=== PATIENT | male | born 1940 | race Caucasian/White ===

== ENCOUNTER 2017-11-28 14:45 | Inpatient (IN) | payer MEDICARE ==
[~2017-11-28] VITALS: Ht 182.9 cm; Wt 98.5 kg
[~2017-11-28 14:45] MED LIST: B12 PO; BUDE10.2 INH; CARV3.122 PO; CHOL100046 PO; CLOP75TA16 PO; FURO40TA4 PO; LEVA15HF4 INH; MAGN400C PO; MULT-1085 PO; NITR0.4T51 SL; POTA-82 PO; ROSU10TA PO; calcium PO
[2017-11-28 15:24] LABS: BASOPHILS % (AUTO) 0.1 % (0-1); EOSINOPHILS # (AUTO) 0.3 X10'3 (0-0.9); EOSINOPHILS % (AUTO) 2.5 % (0-6); HEMATOCRIT 44.2 % (42.0-52.0); HEMOGLOBIN 14.5 g/dl (14.0-17.9); LYMPHOCYTES # (AUTO) 0.9 X10'3 (1.1-4.8); LYMPHOCYTES % (AUTO) 7.9 % (21-51); MEAN CORPUSCULAR HEMOGLOBIN 31.8 PG (27.0-31.0); MEAN CORPUSCULAR HGB CONC 32.9 % (33.0-36.5); MEAN CORPUSCULAR VOLUME 96.5 FL (78-98); MEAN PLATELET VOLUME 7.6 FL (7.4-10.4); MONOCYTES # (AUTO) 0.5 X10'3 (0-0.9); MONOCYTES % (AUTO) 4.6 % (2-12); NEUTROPHILS # (AUTO) 9.3 X10'3 (1.8-7.7); NEUTROPHILS % (AUTO) 84.9 % (42-75); PLATELET COUNT 153 X10'3 (140-440); RED BLOOD COUNT 4.57 X10'6 (4.70-6.10); RED CELL DISTRIBUTION WIDTH 14.4 % (11.5-14.5)
[2017-11-28] MEDS ORDERED: ondansetron/PF 4mg/2ml inj IV ONE (15:25)
[2017-11-28] MEDS ORDERED: morphine 4 MG/ML inj SYRINge IV PRN (15:25)
[2017-11-28 15:33] LABS: PARTIAL THROMBOPLASTIN TIME 26 SECONDS (22-32); PROTHROMBIN TIME 10.5 SECONDS (9.0-12.0)
[2017-11-28 15:38] LABS: ALANINE AMINOTRANSFERASE 21 U/L (12-78); ALBUMIN 4.2 G/DL (3.4-5.0); ALKALINE PHOSPHATASE 69 IU/L (46-116); ANION GAP 10 (8-16); ASPARTATE AMINO TRANSFERASE 25 U/L (10-37); BILIRUBIN,TOTAL 0.8 MG/DL (0.1-1.0); BLOOD UREA NITROGEN 30 MG/DL (7-18); BUN/CREATININE RATIO 16.6 (5.4-32.0); CALCIUM 10.1 MG/DL (8.5-10.1); CHLORIDE 101 MMOL/L (99-107); CREATININE 1.81 MG/DL (0.60-1.10); GLUCOSE 134 MG/DL (70-104); POTASSIUM 4.1 MMOL/L (3.5-5.1); SODIUM 143 MMOL/L (135-145); TOTAL PROTEIN 8.3 G/DL (6.4-8.2); eGFR 36 ML/MIN
[2017-11-28] MEDS ORDERED: mag hydrox/Alum hydrox/simeth 30ml oral suspension PO PRN (16:50)
[2017-11-28] MEDS ORDERED: potassium Cl 40MEQ/NS 500ml 500 ML IV PRN ×2 (16:50)
[2017-11-28] MEDS ORDERED: acetaminophen 325mg tablet PO PRN (16:50)
[2017-11-28] MEDS ORDERED: magnesium 4gm in 100ml NS 100 ML IV PRN (16:50)
[2017-11-28] MEDS ORDERED: magnesium hydroxide 30ml (MOM) UD suspension PO PRN (16:50)
[2017-11-28] MEDS ORDERED: potassium Cl 20 mEq SR tablet PO PRN ×2 (16:50)
[2017-11-28] MEDS ORDERED: HYDROmorphone 1 mg/ml syringe IV PRN (16:50)
[2017-11-28] MEDS ORDERED: ondansetron/PF 4mg/2ml inj IV PRN (16:50)
[2017-11-28] MEDS ORDERED: magnesium Cl slow-release 64mg tablet PO PRN (16:50)
[2017-11-28] MEDS ORDERED: magnesium 1gm/100ml D5W IVPB 100 ML IV PRN (16:50)
[2017-11-28] MEDS ORDERED: FISH12002 PO (16:53)
[2017-11-28] MEDS ORDERED: MAGN500C16 PO (16:53)
[2017-11-28] MEDS ORDERED: CHOL400C8 PO (16:53)
[2017-11-28] MEDS ORDERED: LIDOcaine 2% 10ml TOPICAL JELLY (Urojet) MM ONE (17:20)
[2017-11-28] MEDS ORDERED: nitroGLYCERIN 0.4mg SUBLingual tab SL PRN (17:20)
[2017-11-28] MEDS ORDERED: albuterol 2.5 MG/3 ML nebule NEB PRN (17:20)
[2017-11-28 17:52] LABS: CLARITY,URINE CLEAR (Clear); COLOR,URINE YELLOW (Yellow); GLUCOSE, URINE NEGATIVE (Neg); KETONES,URINE NEGATIVE (Neg); LEUKOCYTE ESTERASE ,URINE NEGATIVE (Neg); NITRITES, URINE NEGATIVE (Neg); OCCULT BLOOD,URINE NEGATIVE (Neg); PH,URINE 5.5 (4.8-8.0); PROTEIN,URINE NEGATIVE (Neg); UROBILINOGEN,URINE 0.2 E.U/dL (0.2-1.0)
[2017-11-28 17:54] LABS: UA COLLECTION TYPE NON-SPECIFIED
[2017-11-28 18:00] VITALS: BP 149/89
[2017-11-28] MEDS: albuterol 2.5 MG/3 ML nebule NEB SCH ×2 (19:00→23:00)
[2017-11-28] MEDS: normal saline 1000ml 1,000 ML IV SCH (19:15)
[2017-11-28] MEDS: pantoprazole 40 MG vial IV SCH (19:36)
[2017-11-28 20:00] VITALS: BP 131/82
[2017-11-28] MEDS ORDERED: non-formulary drug (Budesonide/Formoterol Fumarate (Symbicort 160-4.5 Mcg Inhaler) 2 PUFFS INH SCH (20:00)
[2017-11-28] MEDS: budesonide 0.5mg/2ml UD nebule IH SCH (20:13)
[2017-11-28] MEDS ORDERED: LEVA0.6319 NEB (21:11)
[2017-11-28] MEDS: carVEDilol 3.125mg tablet PO SCH (21:38)
[2017-11-28] MEDS: diatr meglu/diatrizoate 30ml oral sol.-(3 dose) bottle PO SCH (21:39)
[2017-11-29] VITALS: BP 118/66
[2017-11-29] MEDS: HYDROmorphone 1 mg/ml syringe IV PRN ×2 (01:56→08:14)
[2017-11-29] MEDS: albuterol 2.5 MG/3 ML nebule NEB SCH ×6 (03:00→23:00)
[2017-11-29] MEDS: normal saline 1000ml 1,000 ML IV SCH ×3 (03:10→22:50)
[2017-11-29 05:06] LABS: BASOPHILS % (AUTO) 0 % (0-1); EOSINOPHILS # (AUTO) 0.2 X10'3 (0-0.9); EOSINOPHILS % (AUTO) 3.4 % (0-6); HEMATOCRIT 37.4 % (42.0-52.0); HEMOGLOBIN 12.4 g/dl (14.0-17.9); LYMPHOCYTES % (AUTO) 15.9 % (21-51); MEAN CORPUSCULAR HEMOGLOBIN 31.8 PG (27.0-31.0); MEAN CORPUSCULAR HGB CONC 33.1 % (33.0-36.5); MEAN CORPUSCULAR VOLUME 96.2 FL (78-98); MEAN PLATELET VOLUME 8.1 FL (7.4-10.4); MONOCYTES # (AUTO) 0.7 X10'3 (0-0.9); MONOCYTES % (AUTO) 10.6 % (2-12); NEUTROPHILS # (AUTO) 4.3 X10'3 (1.8-7.7); NEUTROPHILS % (AUTO) 70.1 % (42-75); PLATELET COUNT 122 X10'3 (140-440); RED BLOOD COUNT 3.89 X10'6 (4.70-6.10); RED CELL DISTRIBUTION WIDTH 14.1 % (11.5-14.5); WHITE BLOOD COUNT 6.2 X10'3 (4.5-11.0)
[2017-11-29 05:28] LABS: ALANINE AMINOTRANSFERASE 21 U/L (12-78); ALBUMIN 3.3 G/DL (3.4-5.0); ALKALINE PHOSPHATASE 52 IU/L (46-116); ANION GAP 11 (8-16); ASPARTATE AMINO TRANSFERASE 23 U/L (10-37); BILIRUBIN,TOTAL 0.8 MG/DL (0.1-1.0); BLOOD UREA NITROGEN 27 MG/DL (7-18); CALCIUM 8.9 MG/DL (8.5-10.1); CHLORIDE 104 MMOL/L (99-107); CREATININE 1.59 MG/DL (0.60-1.10); GLUCOSE 97 MG/DL (70-104); MAGNESIUM 2.4 MG/DL (1.5-2.4); POTASSIUM 3.8 MMOL/L (3.5-5.1); SODIUM 144 MMOL/L (135-145); TOTAL PROTEIN 6.6 G/DL (6.4-8.2); eGFR 42 ML/MIN
[2017-11-29 07:00] VITALS: BP 128/64
[2017-11-29] MEDS: budesonide 0.5mg/2ml UD nebule IH SCH ×2 (07:30→19:33)
[2017-11-29] MEDS: K and/or MAG REPLACEMENT MC SCH (08:00)
[2017-11-29] MEDS: carVEDilol 3.125mg tablet PO SCH ×2 (08:07→19:25)
[2017-11-29] MEDS: diatr meglu/diatrizoate 30ml oral sol.-(3 dose) bottle PO SCH ×2 (08:07→10:49)
[2017-11-29] MEDS: pantoprazole 40 MG vial IV SCH (08:07)
[2017-11-29 11:00] VITALS: BP 120/68
[2017-11-29 20:00] VITALS: BP 93/60
[2017-11-30 00:10] VITALS: BP 106/53
[2017-11-30] MEDS: albuterol 2.5 MG/3 ML nebule NEB SCH ×6 (02:53→23:11)
[2017-11-30 06:36] LABS: BASOPHILS % (AUTO) 0.1 % (0-1); EOSINOPHILS # (AUTO) 0.2 X10'3 (0-0.9); EOSINOPHILS % (AUTO) 3.5 % (0-6); HEMATOCRIT 34.3 % (42.0-52.0); HEMOGLOBIN 11.4 g/dl (14.0-17.9); LYMPHOCYTES # (AUTO) 0.8 X10'3 (1.1-4.8); LYMPHOCYTES % (AUTO) 14.1 % (21-51); MEAN CORPUSCULAR HEMOGLOBIN 31.9 PG (27.0-31.0); MEAN CORPUSCULAR HGB CONC 33.1 % (33.0-36.5); MEAN CORPUSCULAR VOLUME 96.4 FL (78-98); MEAN PLATELET VOLUME 8.4 FL (7.4-10.4); MONOCYTES # (AUTO) 0.6 X10'3 (0-0.9); MONOCYTES % (AUTO) 11.1 % (2-12); NEUTROPHILS % (AUTO) 71.2 % (42-75); PLATELET COUNT 102 X10'3 (140-440); RED BLOOD COUNT 3.55 X10'6 (4.70-6.10); RED CELL DISTRIBUTION WIDTH 14.1 % (11.5-14.5); WHITE BLOOD COUNT 5.6 X10'3 (4.5-11.0)
[2017-11-30 06:40] LABS: ALANINE AMINOTRANSFERASE 15 U/L (12-78); ALBUMIN 2.8 G/DL (3.4-5.0); ALBUMIN/GLOBULIN RATIO 0.9 (1.1-1.5); ALKALINE PHOSPHATASE 42 IU/L (46-116); ANION GAP 9 (8-16); ASPARTATE AMINO TRANSFERASE 18 U/L (10-37); BILIRUBIN,TOTAL 0.7 MG/DL (0.1-1.0); BLOOD UREA NITROGEN 23 MG/DL (7-18); BUN/CREATININE RATIO 16.1 (5.4-32.0); CALCIUM 8.3 MG/DL (8.5-10.1); CHLORIDE 109 MMOL/L (99-107); CREATININE 1.43 MG/DL (0.60-1.10); GLUCOSE 74 MG/DL (70-104); MAGNESIUM 2.2 MG/DL (1.5-2.4); POTASSIUM 3.9 MMOL/L (3.5-5.1); SODIUM 146 MMOL/L (135-145); TOTAL CARBON DIOXIDE 28.1 MMOL/L (24-32); TOTAL PROTEIN 5.8 G/DL (6.4-8.2); eGFR 48 ML/MIN
[2017-11-30 06:58] VITALS: BP 115/60
[2017-11-30] MEDS: budesonide 0.5mg/2ml UD nebule IH SCH ×2 (07:30→19:13)
[2017-11-30] MEDS: K and/or MAG REPLACEMENT MC SCH (08:00)
[2017-11-30] MEDS: pantoprazole 40 MG vial IV SCH (08:46)
[2017-11-30] MEDS: carVEDilol 3.125mg tablet PO SCH ×2 (08:46→20:03)
[2017-11-30] MEDS: normal saline 1000ml 1,000 ML IV SCH (08:47)
[2017-11-30 11:37] VITALS: BP 128/60
[2017-11-30] MEDS: sodium chloride 0.45% 1,000 ML IV SCH ×2 (13:07→22:35)
[2017-11-30 20:00] VITALS: BP 135/73
[2017-12-01] VITALS: BP 129/67
[2017-12-01] MEDS: albuterol 2.5 MG/3 ML nebule NEB SCH ×3 (03:00→10:52)
[2017-12-01 06:50] LABS: BASOPHILS % (AUTO) 0.2 % (0-1); EOSINOPHILS # (AUTO) 0.3 X10'3 (0-0.9); HEMATOCRIT 33.8 % (42.0-52.0); HEMOGLOBIN 11.1 g/dl (14.0-17.9); LYMPHOCYTES # (AUTO) 0.8 X10'3 (1.1-4.8); LYMPHOCYTES % (AUTO) 14.9 % (21-51); MEAN CORPUSCULAR HEMOGLOBIN 31.6 PG (27.0-31.0); MEAN CORPUSCULAR HGB CONC 32.8 % (33.0-36.5); MEAN CORPUSCULAR VOLUME 96.4 FL (78-98); MEAN PLATELET VOLUME 8.3 FL (7.4-10.4); MONOCYTES # (AUTO) 0.7 X10'3 (0-0.9); MONOCYTES % (AUTO) 11.8 % (2-12); NEUTROPHILS # (AUTO) 3.9 X10'3 (1.8-7.7); NEUTROPHILS % (AUTO) 68.1 % (42-75); PLATELET COUNT 108 X10'3 (140-440); RED CELL DISTRIBUTION WIDTH 13.8 % (11.5-14.5); WHITE BLOOD COUNT 5.7 X10'3 (4.5-11.0)
[2017-12-01 07:06] LABS: ALBUMIN 2.8 G/DL (3.4-5.0); ANION GAP 10 (8-16); BILIRUBIN,TOTAL 0.8 MG/DL (0.1-1.0); BLOOD UREA NITROGEN 18 MG/DL (7-18); CALCIUM 8.2 MG/DL (8.5-10.1); CHLORIDE 107 MMOL/L (99-107); CREATININE 1.38 MG/DL (0.60-1.10); GLUCOSE 99 MG/DL (70-104); MAGNESIUM 2.2 MG/DL (1.5-2.4); POTASSIUM 3.6 MMOL/L (3.5-5.1); SODIUM 144 MMOL/L (135-145); TOTAL PROTEIN 5.8 G/DL (6.4-8.2); eGFR 50 ML/MIN
[2017-12-01 07:07] LABS: ALANINE AMINOTRANSFERASE 15 U/L (12-78); ALBUMIN/GLOBULIN RATIO 0.9 (1.1-1.5); ALKALINE PHOSPHATASE 41 IU/L (46-116); ASPARTATE AMINO TRANSFERASE 16 U/L (10-37)
[2017-12-01] MEDS: budesonide 0.5mg/2ml UD nebule IH SCH (07:18)
[2017-12-01] MEDS: pantoprazole 40 MG vial IV SCH (07:44)
[2017-12-01] MEDS: carVEDilol 3.125mg tablet PO SCH (07:44)
[2017-12-01 08:00] VITALS: BP 118/73
[2017-12-01] MEDS: K and/or MAG REPLACEMENT MC SCH (08:00)
[2017-12-01] MEDS: sodium chloride 0.45% 1,000 ML IV SCH (08:35)
[2017-12-01 11:45] VITALS: BP 130/69
== END 2017-12-01 15:10 | disposition home or self-care (01) | DRG 388 ==
LOC: ER 14:46 → ED HOLD 16:47 → SUR 3N 18:13
PROVIDERS: ADMIT Family Medicine; ATTEND Family Medicine
PROC: 0D9670Z Drainage of Stomach with Drainage Device, Via Natural or Artificial Opening (ICD-10-PCS; principal; 2017-11-28)
DX: K56.609 Unspecified intestinal obstruction, unspecified as to partial versus complete obstruction (principal); N17.0 Acute kidney failure with tubular necrosis; I13.0 Hypertensive heart and chronic kidney disease with heart failure and stage 1 through stage 4 chronic kidney disease, or unspecified chronic kidney disease; E78.5 Hyperlipidemia, unspecified; I48.91 Unspecified atrial fibrillation; J44.9 Chronic obstructive pulmonary disease, unspecified; D64.9 Anemia, unspecified; G47.33 Obstructive sleep apnea (adult) (pediatric); G47.419 Narcolepsy without cataplexy; I25.10 Atherosclerotic heart disease of native coronary artery without angina pectoris; I50.9 Heart failure, unspecified; N18.9 Chronic kidney disease, unspecified; N40.0 Benign prostatic hyperplasia without lower urinary tract symptoms; I25.2 Old myocardial infarction; Z95.2 Presence of prosthetic heart valve; Z23 Encounter for immunization; Z95.1 Presence of aortocoronary bypass graft; Z95.5 Presence of coronary angioplasty implant and graft; Z88.2 Allergy status to sulfonamides; Z88.8 Allergy status to other drugs, medicaments and biological substances; Z91.048 Other nonmedicinal substance allergy status; Z79.899 Other long term (current) drug therapy; Z86.010 Personal history of colon polyps; Z87.11 Personal history of peptic ulcer disease; Z82.49 Family history of ischemic heart disease and other diseases of the circulatory system; Z80.9 Family history of malignant neoplasm, unspecified
CPT/HCPCS: 36415; 71045; 74018; 74176; 80053; 81003; 83735; 84484; 85025; 85610; 85730; 87070; 93005; 93308; 94640; 94760; 96374; 96375; 99285; C9113; J1170; J2270; J2405; J7030; J7626; Q9963

== ENCOUNTER 2020-08-30 10:29 | Day surgery (SDC) | payer MEDICARE, BC ==
[~2020-08-30] VITALS: Ht 180.3 cm; Wt 85.0 kg
[~2020-08-30 10:29] MED LIST changes: +ATRNS IH; -B12 PO; +CAL MAG ZINC PO; -CHOL100046 PO; +CHOL400C8 PO; +CLOP-32 PO; -CLOP75TA16 PO; +CYAN-51 PO; +FERR325T32 PO; +FISH12002 PO; +FURO20TA4 PO; -FURO40TA4 PO; -MAGN400C PO; +MAGN500C16 PO; -ROSU10TA PO; +ROSU10TA2 PO; +VITA-268 PO; -calcium PO
[2020-08-30] MEDS ORDERED: normal saline 1000ml 1,000 ML IV PRN (11:10)
[2020-08-30] MEDS ORDERED: FURO-150 PO (11:32)
[2020-08-30] MEDS ORDERED: LACT1CAP73 PO (11:32)
[2020-08-30] MEDS ORDERED: ZINC50TA67 PO (11:32)
[2020-08-30] MEDS ORDERED: MUPI15CR12 TOP (11:32)
[2020-08-30] MEDS ORDERED: UBID100C16 PO (11:32)
[2020-08-30 12:30] VITALS: BP 116/61
[2020-08-30] MEDS ORDERED: midazolam 1 mg/ML 2ml injection ONE (12:54)
[2020-08-30] MEDS ORDERED: heparin 1,000unit/ml 10ml vial 10 ML ONE (12:54)
[2020-08-30] MEDS ORDERED: fentaNYL/PF 50MCG/1 ML 2ML syringe ONE (12:54)
[2020-08-30] MEDS ORDERED: LIDOcaine 1%/PF 5ML 10 MG/ML VIAL ONE (12:54)
[2020-08-30 13:55] VITALS: BP 132/45
[2020-08-30 14:10] VITALS: BP 139/68
[2020-08-30 14:25] VITALS: BP 127/59
[2020-08-30 14:40] VITALS: BP 125/62
[2020-08-30 15:10] VITALS: BP 125/61
[2020-09-03] MEDS ORDERED: FLUT1BLS4 INH (14:38)
[2020-09-04] MEDS ORDERED: MUPI22OI30 TOP (10:25)
[2020-09-04] MEDS ORDERED: CALC-103 PO (10:25)
[2020-09-04] MEDS ORDERED: FURO40TA4 PO (11:00)
== END 2020-08-30 15:40 | disposition home or self-care (01) ==
LOC: SSTAY O 10:29
PROVIDERS: ATTEND Radiology Vascular & Interventional Radiology
DX: N18.6 End stage renal disease (principal); Z79.899 Other long term (current) drug therapy; Z79.01 Long term (current) use of anticoagulants; Z88.2 Allergy status to sulfonamides; Z91.09 Other allergy status, other than to drugs and biological substances; Z88.8 Allergy status to other drugs, medicaments and biological substances; Z82.49 Family history of ischemic heart disease and other diseases of the circulatory system; Z80.0 Family history of malignant neoplasm of digestive organs
CPT/HCPCS: 36558; 76937; 77001; 99152; C1750; C1769; C1894; J1644; J2250; J3010; 99153

== ENCOUNTER 2020-10-17 10:30 | Outpatient (CLI) | payer MEDICARE, BC ==
[~2020-10-17 10:30] MED LIST changes: -ATRNS IH; -BUDE10.2 INH; -CAL MAG ZINC PO; +CALC-103 PO; +FLUT1BLS4 INH; -FURO20TA4 PO; +FURO40TA4 PO; +LACT1CAP73 PO; +MUPI22OI30 TOP; +UBID100C16 PO; +ZINC50TA67 PO
[2020-10-17] MEDS ORDERED: MULT-381 PO (11:53)
[2020-10-17] MEDS ORDERED: PANT40TA54 PO (12:04)
[2020-10-17] MEDS ORDERED: IPRATROPIUM NASAL (12:05)
[2020-10-17] MEDS ORDERED: DIPH25TA62 PO (12:05)
[2020-10-17] MEDS ORDERED: FISH12002 PO (12:05)
[2020-10-17 12:14] LABS: BASOPHILS % (AUTO) 0.8 % (0-1); EOSINOPHILS # (AUTO) 0.3 X10'3 (0-0.9); EOSINOPHILS % (AUTO) 5.4 % (0-6); LYMPHOCYTES # (AUTO) 0.8 X10'3 (1.1-4.8); LYMPHOCYTES % (AUTO) 13.1 % (21-51); MEAN CORPUSCULAR HEMOGLOBIN 34.1 PG (27.0-31.0); MEAN CORPUSCULAR HGB CONC 31.4 g/dL (33.0-36.5); MEAN CORPUSCULAR VOLUME 108.7 FL (78-98); MEAN PLATELET VOLUME 8.7 FL (7.4-10.4); MONOCYTES # (AUTO) 0.6 X10'3 (0-0.9); MONOCYTES % (AUTO) 10.8 % (2-12); NEUTROPHILS # (AUTO) 4.1 X10'3 (1.8-7.7); NEUTROPHILS % (AUTO) 69.9 % (42-75); PRE OP HEMATOCRIT 34.2 % (42.0-52.0); PRE OP PLATELET COUNT 123 X10'3 (140-440); RED BLOOD COUNT 3.15 X10'6 (4.70-6.10); RED CELL DISTRIBUTION WIDTH 21.1 % (11.5-14.5)
[2020-10-17 12:15] LABS: CLARITY,URINE CLEAR (Clear); COLOR,URINE YELLOW (Yellow); GLUCOSE, URINE NEGATIVE (Neg); KETONES,URINE NEGATIVE (Neg); LEUKOCYTE ESTERASE ,URINE NEGATIVE (Neg); NITRITES, URINE NEGATIVE (Neg); OCCULT BLOOD,URINE TRACE-INTACT (Neg); PROTEIN,URINE 30 mg/dl (Neg); UROBILINOGEN,URINE 0.2 E.U/dL (0.2-1.0)
[2020-10-17 12:17] LABS: PRE OP HEMOGLOBIN 10.7 g/dL (14.0-17.9)
[2020-10-17 12:22] LABS: UA COLLECTION TYPE CLN CATCH MIDSTREAM
[2020-10-17 12:23] LABS: BACTERIA,URINE NONE SEEN /HPF (Neg); RBC,URINE NONE SEEN /HPF (0-2); SQUAMOUS EPITHELIAL CELL,UR NONE SEEN /LPF (FEW); WBC,URINE NONE SEEN /HPF (0-4)
[2020-10-17 12:24] LABS: PRE OP INR 1.2 INR; PRE OP PROTIME 11.9 SECONDS (9.0-12.0)
[2020-10-17 12:28] LABS: ALBUMIN 3.3 G/DL (3.4-5.0); ALKALINE PHOSPHATASE 73 IU/L (46-116); BLOOD UREA NITROGEN 45 MG/DL (7-18); BUN/CREATININE RATIO 8.7 (5.4-32.0); CALCIUM 8.1 MG/DL (8.5-10.1); CHLORIDE 108 MMOL/L (99-107); PRE OP ALT 19 U/L (30-65); PRE OP ANION GAP 13 (8-16); PRE OP AST 22 U/L (10-37); PRE OP BILIRUB, TOTAL 0.8 MG/DL (0.0-1.0); PRE OP GLUCOSE 95 MG/DL (70-104); PRE OP POTASSIUM 4.9 MMOL/L (3.4-5.1); PRE OP SODIUM 145 MMOL/L (135-145); TOTAL CARBON DIOXIDE 24.5 MMOL/L (24-32); TOTAL PROTEIN 6.7 G/DL (6.4-8.2); eGFR 11 ML/MIN
[2020-10-17 13:05] LABS: ANISOCYTOSIS 3+; BURR CELLS FEW; PLATELET ESTIMATE DECREASED
[2020-10-17 13:06] LABS: MICROCYTOSIS 1+; SCHISTOCYTES FEW
[2020-11-21] MEDS ORDERED: VITA1TAB37 PEG (12:04)
[2020-11-21] MEDS ORDERED: LACT1CAP65 PO (12:04)
[2020-11-21] MEDS ORDERED: CALC200T PO (12:04)
[2020-11-21] MEDS ORDERED: MUPI22OI30 TOP (12:04)
[2020-11-21] MEDS ORDERED: MULT-1085 PO (12:04)
[2020-11-21] MEDS ORDERED: FURO40TA4 PO (12:04)
[2020-11-21] MEDS ORDERED: PROM473S4 PO (12:04)
[2020-11-21] MEDS ORDERED: LOPE-144 (12:04)
[2020-11-21] MEDS ORDERED: FERR236T3 PO (12:04)
== END 2020-10-17 23:59 | disposition home or self-care (01) ==
LOC: PRE-OP 10:30 → EDSTATUS 10-24 09:15
PROVIDERS: ATTEND Surgery
DX: Z01.812 Encounter for preprocedural laboratory examination (principal); I11.0 Hypertensive heart disease with heart failure; I50.9 Heart failure, unspecified; Z20.822 Contact with and (suspected) exposure to COVID-19
CPT/HCPCS: 36415; 80053; 81001; 85008; 85025; 85610; 85730; 93005; U0003; U0005

== ENCOUNTER 2020-10-18 08:01 | Outpatient (CLI) | payer MEDICARE, BC ==
[2020-10-18] VITALS (12 sets, daily range): BP systolic 99–145; BP diastolic 38–61
[~2020-10-18] VITALS: Ht 182.9 cm; Wt 81.8 kg
[~2020-10-18 08:01] MED LIST changes: -CALC-103 PO; -CHOL400C8 PO; -CYAN-51 PO; +DIPH25TA62 PO; -FERR325T32 PO; +IPRATROPIUM NASAL; +MULT-381 PO; -NITR0.4T51 SL; +PANT40TA54 PO; -UBID100C16 PO; -ZINC50TA67 PO
[2020-10-18] MEDS ORDERED: regadenoson 0.4mg/5ml syringe IV ONE (09:20)
[2020-10-18] MEDS ORDERED: normal saline 500ml IV soln 500 ML IV ONE (09:20)
[2020-10-18] MEDS ORDERED: aminophylline 250mg/10ml inj. IV PRN (09:20)
[2020-10-18] MEDS ORDERED: nitroGLYCERIN 0.4mg SUBLingual tab SL PRN (09:20)
== END 2020-10-18 23:59 | disposition home or self-care (01) ==
LOC: RAD 08:01
PROVIDERS: ATTEND Internal Medicine Cardiovascular Disease
DX: I25.10 Atherosclerotic heart disease of native coronary artery without angina pectoris (principal)
CPT/HCPCS: 78452; 93017; A9500; J0280; J2785; J7040

== ENCOUNTER 2020-10-29 20:06 | Inpatient (IN) | payer MEDICARE, BC ==
[~2020-10-29] VITALS: Ht 182.9 cm; Wt 86.4 kg
[2020-10-29 21:18] LABS: PARTIAL THROMBOPLASTIN TIME 37 SECONDS (22-32)
[2020-10-29 21:28] LABS: ALANINE AMINOTRANSFERASE 14 U/L (12-78); ALBUMIN 3.6 G/DL (3.4-5.0); ALBUMIN/GLOBULIN RATIO 1.1 (1.1-1.5); ALKALINE PHOSPHATASE 86 IU/L (46-116); ANION GAP 23 (8-16); ASPARTATE AMINO TRANSFERASE 17 U/L (10-37); BILIRUBIN,TOTAL 0.7 MG/DL (0.1-1.0); BLOOD UREA NITROGEN 135 MG/DL (7-18); BUN/CREATININE RATIO 13.9 (5.4-32.0); CALCIUM 7.9 MG/DL (8.5-10.1); CHLORIDE 113 MMOL/L (99-107); CREATININE 9.74 MG/DL (0.60-1.10); GLUCOSE 83 MG/DL (70-104); MAGNESIUM 2.1 MG/DL (1.5-2.4); PHOSPHORUS 7.5 MG/DL (2.3-4.5); SODIUM 146 MMOL/L (135-145); TOTAL PROTEIN 6.8 G/DL (6.4-8.2); TROPONIN I 0.04 NG/ML (0.0-0.05); eGFR 5 ML/MIN
[2020-10-29 21:35] LABS: POTASSIUM 6.3 MMOL/L (3.5-5.1); TOTAL CARBON DIOXIDE 10.5 MMOL/L (24-32)
[2020-10-29] MEDS ORDERED: ondansetron/PF 4mg/2ml inj IV PRN (21:35)
[2020-10-29] MEDS ORDERED: magnesium hydroxide 30ml (MOM) UD suspension PO PRN (21:35)
[2020-10-29] MEDS ORDERED: HYDROcodone/acetaminophen 5mg/325mg tablet PO PRN (21:35)
[2020-10-29] MEDS ORDERED: mag hydrox/Alum hydrox/simeth 30ml oral suspension PO PRN (21:35)
[2020-10-29] MEDS ORDERED: morphine 2 MG/ML inj. syringe IV PRN ×2 (21:35)
[2020-10-29] MEDS ORDERED: acetaminophen 325mg tablet PO PRN ×2 (21:35)
[2020-10-29] MEDS ORDERED: normal saline 1000ml 250 ML IV PRN (21:50)
[2020-10-29] MEDS ORDERED: heparin 1,000unit/ml 10ml vial 10 ML IV ONE (21:50)
[2020-10-29] MEDS ORDERED: calcium chloride 100 MG/1 ML inj IV ONE (21:55)
[2020-10-29] MEDS ORDERED: heparin 1,000 units/ml 10ml inj HE ONE ×2 (21:55)
[2020-10-29 22:02] LABS: BASOPHILS # (AUTO) 0.1 X10'3 (0-0.2); BASOPHILS % (AUTO) 1.5 % (0-1); EOSINOPHILS # (AUTO) 0.2 X10'3 (0-0.9); EOSINOPHILS % (AUTO) 3.3 % (0-6); LYMPHOCYTES # (AUTO) 0.8 X10'3 (1.1-4.8); LYMPHOCYTES % (AUTO) 13.2 % (21-51); MONOCYTES # (AUTO) 0.7 X10'3 (0-0.9); MONOCYTES % (AUTO) 11.2 % (2-12); NEUTROPHILS # (AUTO) 4.2 X10'3 (1.8-7.7); NEUTROPHILS % (AUTO) 70.8 % (42-75)
--- NOTE | 2020-10-29 22:14 | NUR ---
[place] in EDM - 10/29/20 at 2218 by [facility] HOSPITALIST CALLED. VERBAL RECEIVED FROM DR. GROVE FOR PRN ATIVAN 0.5 MG Q2 HR PRN FOR AGGITATION.
[2020-10-29] MEDS ORDERED: LORazepam 2 mg/ml vial IV PRN (22:15)
[2020-10-29 22:49] LABS: HEMATOCRIT 38.6 % (42.0-52.0); HEMOGLOBIN 11.9 g/dl (14.0-17.9); MEAN CORPUSCULAR HEMOGLOBIN 33.4 PG (27.0-31.0); MEAN CORPUSCULAR VOLUME 107.9 FL (78-98); PLATELET COUNT 67 X10'3 (140-440); RED BLOOD COUNT 3.57 X10'6 (4.70-6.10); RED CELL DISTRIBUTION WIDTH 17.9 % (11.5-14.5); WHITE BLOOD COUNT 6.1 X10'3 (4.5-11.0)
[2020-10-29 23:08] LABS: PLATELET ESTIMATE DECREASED
[2020-10-29 23:09] LABS: ANISOCYTOSIS 2+
--- NOTE | 2020-10-29 23:38 | NUR ---
TEST RIDER AT BEDSIDE AND PT TAKEN TO ANOTHER AREA FOR DIALYSIS PROCEDURE. ADMISSION ORDERS COMPLETED AND PT AWAITING IPA.
--- NOTE | 2020-10-30 00:59 | NUR ---
PT STILL UNDERGOING DIALYSIS TREATMENT WITH THE DIALYSIS NURSE
[2020-10-30] MEDS ORDERED: ATRNS ×2 (02:23→09:51)
--- NOTE | 2020-10-30 02:58 | NUR ---
pt returned from dialysis. airborne and air delivery specialist reports. 1 liter dialized off per Dr. Root orders. Pt tolerated procidure well. Placed on hospital bed awaiting IPA
[2020-10-30 03:06] LABS: BASOPHILS % (AUTO) 0.9 % (0-1); EOSINOPHILS # (AUTO) 0.2 X10'3 (0-0.9); EOSINOPHILS % (AUTO) 3.4 % (0-6); HEMATOCRIT 33.2 % (42.0-52.0); HEMOGLOBIN 10.4 g/dl (14.0-17.9); LYMPHOCYTES # (AUTO) 0.7 X10'3 (1.1-4.8); LYMPHOCYTES % (AUTO) 12.2 % (21-51); MEAN CORPUSCULAR HEMOGLOBIN 33.7 PG (27.0-31.0); MEAN CORPUSCULAR HGB CONC 31.3 g/dL (33.0-36.5); MEAN CORPUSCULAR VOLUME 107.5 FL (78-98); MEAN PLATELET VOLUME 8.9 FL (7.4-10.4); MONOCYTES # (AUTO) 0.6 X10'3 (0-0.9); MONOCYTES % (AUTO) 11.5 % (2-12); NEUTROPHILS # (AUTO) 3.9 X10'3 (1.8-7.7); RED BLOOD COUNT 3.09 X10'6 (4.70-6.10); RED CELL DISTRIBUTION WIDTH 18.5 % (11.5-14.5); WHITE BLOOD COUNT 5.4 X10'3 (4.5-11.0)
[2020-10-30 03:27] LABS: ALBUMIN 3.3 G/DL (3.4-5.0); ANION GAP 18 (8-16); BLOOD UREA NITROGEN 62 MG/DL (7-18); BUN/CREATININE RATIO 12.9 (5.4-32.0); CALCIUM 7.4 MG/DL (8.5-10.1); CHLORIDE 107 MMOL/L (99-107); CREATININE 4.79 MG/DL (0.60-1.10); GLUCOSE 71 MG/DL (70-104); POTASSIUM 3.2 MMOL/L (3.5-5.1); SODIUM 144 MMOL/L (135-145); TOTAL CARBON DIOXIDE 18.7 MMOL/L (24-32); eGFR 12 ML/MIN
[2020-10-30] MEDS ORDERED: SODI650T29 PO ×2 (03:33→09:51)
[2020-10-30 04:05] LABS: PLATELET COUNT 71 X10'3 (140-440)
[2020-10-30 06:08] LABS: CLARITY,URINE CLEAR (Clear); COLOR,URINE YELLOW (Yellow); GLUCOSE, URINE NEGATIVE (Neg); KETONES,URINE TRACE mg/dl (Neg); LEUKOCYTE ESTERASE ,URINE NEGATIVE (Neg); NITRITES, URINE NEGATIVE (Neg); OCCULT BLOOD,URINE SMALL (Neg); PH,URINE 5.5 (4.8-8.0); PROTEIN,URINE TRACE mg/dl (Neg); UROBILINOGEN,URINE 0.2 E.U/dL (0.2-1.0)
[2020-10-30 06:23] LABS: UA COLLECTION TYPE CLN CATCH MIDSTREAM
[2020-10-30 06:26] LABS: BACTERIA,URINE NONE SEEN /HPF (Neg); MUCUS STRANDS NONE SEEN /LPF (Neg); RBC,URINE NONE SEEN /HPF (0-2); SQUAMOUS EPITHELIAL CELL,UR FEW /LPF (FEW); WBC,URINE 0-4 /HPF (0-4)
[2020-10-30] MEDS ORDERED: docusate sod 100mg capsule PO SCH (08:00)
[2020-10-30] MEDS ORDERED: CARV3.1244 PO (09:46)
[2020-10-30] MEDS ORDERED: FLUT1BLS4 INH (09:47)
[2020-10-30] MEDS ORDERED: POTA20TA19 PO (09:51)
[2020-10-30] MEDS ORDERED: CLOP75TA34 PO (09:51)
[2020-10-30] MEDS ORDERED: PANT40TA54 PO (09:51)
[2020-10-30] MEDS ORDERED: ROSU10TA28 PO (09:51)
[2020-10-30 14:22] VITALS: BP 121/56
== END 2020-10-30 14:22 | disposition home or self-care (01) | DRG 640 ==
LOC: ER 20:08 → ED HOLD 21:35
PROVIDERS: ADMIT Internal Medicine; ATTEND Internal Medicine
PROC: 5A1D70Z Performance of Urinary Filtration, Intermittent, Less than 6 Hours Per Day (ICD-10-PCS; principal; 2020-10-29)
DX: E87.2 Acidosis (principal); N18.6 End stage renal disease; N17.9 Acute kidney failure, unspecified; I13.2 Hypertensive heart and chronic kidney disease with heart failure and with stage 5 chronic kidney disease, or end stage renal disease; E87.5 Hyperkalemia; E78.5 Hyperlipidemia, unspecified; I25.10 Atherosclerotic heart disease of native coronary artery without angina pectoris; I50.9 Heart failure, unspecified; K21.9 Gastro-esophageal reflux disease without esophagitis; J43.9 Emphysema, unspecified; N40.0 Benign prostatic hyperplasia without lower urinary tract symptoms; Z82.49 Family history of ischemic heart disease and other diseases of the circulatory system; I25.2 Old myocardial infarction; Z87.891 Personal history of nicotine dependence; Z95.1 Presence of aortocoronary bypass graft; Z99.2 Dependence on renal dialysis; Z88.2 Allergy status to sulfonamides; Z88.8 Allergy status to other drugs, medicaments and biological substances; Z79.899 Other long term (current) drug therapy
CPT/HCPCS: 36415; 76770; 80048; 80053; 81001; 83605; 83735; 83880; 84100; 84484; 85008; 85025; 85610; 85730; 87040; 87077; 87186; 90935; 93005; 99285; G0257; G0378; J1644; J2150

== ENCOUNTER 2020-11-21 15:10 | Outpatient (CLI) | payer MEDICARE, BC ==
[~2020-11-21] VITALS: Ht 182.9 cm; Wt 79.8 kg
[2020-11-21 12:15] LABS: BASOPHILS # (AUTO) 0.1 X10'3 (0-0.2); BASOPHILS % (AUTO) 0.5 % (0-1); EOSINOPHILS % (AUTO) 0.1 % (0-6); LYMPHOCYTES # (AUTO) 0.8 X10'3 (1.1-4.8); LYMPHOCYTES % (AUTO) 3.2 % (21-51); MEAN CORPUSCULAR HEMOGLOBIN 31.4 PG (27.0-31.0); MEAN CORPUSCULAR HGB CONC 31.3 g/dL (33.0-36.5); MEAN CORPUSCULAR VOLUME 100.5 FL (78-98); MEAN PLATELET VOLUME 8.4 FL (7.4-10.4); MONOCYTES # (AUTO) 1.8 X10'3 (0-0.9); MONOCYTES % (AUTO) 7.3 % (2-12); NEUTROPHILS # (AUTO) 21.5 X10'3 (1.8-7.7); NEUTROPHILS % (AUTO) 88.9 % (42-75); PRE OP HEMATOCRIT 38.2 % (42.0-52.0); RED CELL DISTRIBUTION WIDTH 18.2 % (11.5-14.5)
[2020-11-21 12:31] LABS: CLARITY,URINE CLEAR (Clear); COLOR,URINE YELLOW (Yellow); GLUCOSE, URINE NEGATIVE (Neg); KETONES,URINE NEGATIVE (Neg); LEUKOCYTE ESTERASE ,URINE NEGATIVE (Neg); NITRITES, URINE NEGATIVE (Neg); OCCULT BLOOD,URINE NEGATIVE (Neg); PROTEIN,URINE 30 mg/dl (Neg); UA COLLECTION TYPE VOIDED; UROBILINOGEN,URINE 0.2 E.U/dL (0.2-1.0)
[2020-11-21 12:33] LABS: ALBUMIN 2.6 G/DL (3.4-5.0); ALBUMIN/GLOBULIN RATIO 0.7 (1.1-1.5); ALKALINE PHOSPHATASE 107 IU/L (46-116); BLOOD UREA NITROGEN 49 MG/DL (7-18); BUN/CREATININE RATIO 7.8 (5.4-32.0); CALCIUM 8.5 MG/DL (8.5-10.1); CHLORIDE 103 MMOL/L (99-107); PRE OP ALT 18 U/L (30-65); PRE OP ANION GAP 12 (8-16); PRE OP AST 21 U/L (10-37); PRE OP BILIRUB, TOTAL 0.7 MG/DL (0.0-1.0); PRE OP GLUCOSE 123 MG/DL (70-104); PRE OP POTASSIUM 4.9 MMOL/L (3.4-5.1); PRE OP SODIUM 139 MMOL/L (135-145); TOTAL CARBON DIOXIDE 23.9 MMOL/L (24-32); TOTAL PROTEIN 6.3 G/DL (6.4-8.2); eGFR 9 ML/MIN
[2020-11-21 12:38] LABS: BACTERIA,URINE NONE SEEN /HPF (Neg); MUCUS STRANDS FEW /LPF (Neg); RBC,URINE NONE SEEN /HPF (0-2); SQUAMOUS EPITHELIAL CELL,UR FEW /LPF (FEW); WBC,URINE 0-4 /HPF (0-4)
[2020-11-21 12:39] LABS: COARSE GRANULAR CAST 0-3 /LPF (NEGATIVE); HYALINE CASTS 0-3 /LPF (NEGATIVE)
[2020-11-21 13:13] LABS: PRE OP PLATELET COUNT 79 X10'3 (140-440)
[2020-11-21 13:15] LABS: ANISOCYTOSIS 2+; LARGE PLATELETS FEW; PLATELET ESTIMATE DECREASED; TOTAL CELLS COUNTED 100
[~2020-11-21 15:10] MED LIST changes: +ATRNS; +CALC200T PO; -CARV3.122 PO; +CARV3.1244 PO; -CLOP-32 PO; +CLOP75TA34 PO; -DIPH25TA62 PO; +FERR236T3 PO; -FISH12002 PO; -IPRATROPIUM NASAL; +LACT1CAP65 PO; -LACT1CAP73 PO; -LEVA15HF4 INH; +LOPE-144; -MAGN500C16 PO; -MULT-381 PO; -POTA-82 PO; +POTA20TA19 PO; +PROM473S4 PO; -ROSU10TA2 PO; +ROSU10TA28 PO; +SODI650T29 PO; -VITA-268 PO; +VITA1TAB37 PEG
[2020-11-28] MEDS ORDERED: ringers solution, lacted 1,000 ML IV SCH (05:00)
[2020-11-28] MEDS ORDERED: DOCUMENT DATE & TIME OF BETA-BLOCKER PO ONE (05:30)
[2020-11-28] MEDS ORDERED: cefazolin/dext.iso 2gm/100ml IV ONE (05:30)
[2020-11-28] MEDS ORDERED: albuterol 2.5 MG/3 ML nebule NEB ONE (05:30)
[2020-11-28] MEDS ORDERED: famotidine 20mg tablet PO ONE (05:30)
== END 2020-11-21 23:59 | disposition home or self-care (01) ==
LOC: PRE-OP 15:10 → EDSTATUS 11-28 10:15
PROVIDERS: ATTEND Surgery
DX: Z01.812 Encounter for preprocedural laboratory examination (principal); K43.9 Ventral hernia without obstruction or gangrene; N18.6 End stage renal disease; Z20.822 Contact with and (suspected) exposure to COVID-19
CPT/HCPCS: 36415; 80053; 81001; 85007; 85025; U0003; U0005; J7120

== ENCOUNTER 2020-11-25 06:41 | Inpatient (IN) | payer MEDICARE, BC ==
[~2020-11-25] VITALS: Ht 182.9 cm; Wt 81.8 kg
[2020-11-25] MEDS ORDERED: acetaminophen 325mg tablet PO ONE (07:50)
[2020-11-25 08:11] LABS: EOSINOPHILS % (AUTO) 0 % (0-6); HEMOGLOBIN 11.2 g/dl (14.0-17.9)
[2020-11-25 08:13] LABS: BASOPHILS # (AUTO) 0.4 X10'3 (0-0.2); BASOPHILS % (AUTO) 1.3 % (0-1); HEMATOCRIT 35.4 % (42.0-52.0); LYMPHOCYTES # (AUTO) 0.3 X10'3 (1.1-4.8); LYMPHOCYTES % (AUTO) 1.1 % (21-51); MEAN CORPUSCULAR HEMOGLOBIN 30.7 PG (27.0-31.0); MEAN CORPUSCULAR HGB CONC 31.6 g/dL (33.0-36.5); MEAN PLATELET VOLUME 8.6 FL (7.4-10.4); MONOCYTES % (AUTO) 3.2 % (2-12); NEUTROPHILS # (AUTO) 27.9 X10'3 (1.8-7.7); NEUTROPHILS % (AUTO) 94.4 % (42-75); PLATELET COUNT 67 X10'3 (140-440); RED BLOOD COUNT 3.65 X10'6 (4.70-6.10)
[2020-11-25 08:26] LABS: WHITE BLOOD COUNT 29.6 X10'3 (4.5-11.0)
[2020-11-25 08:28] LABS: ALANINE AMINOTRANSFERASE 14 U/L (12-78); ALBUMIN 2.3 G/DL (3.4-5.0); ALBUMIN/GLOBULIN RATIO 0.7 (1.1-1.5); ALKALINE PHOSPHATASE 106 IU/L (46-116); ANION GAP 11 (8-16); ASPARTATE AMINO TRANSFERASE 19 U/L (10-37); BILIRUBIN,TOTAL 0.8 MG/DL (0.1-1.0); BLOOD UREA NITROGEN 35 MG/DL (7-18); BUN/CREATININE RATIO 7.2 (5.4-32.0); CALCIUM 8.1 MG/DL (8.5-10.1); CHLORIDE 102 MMOL/L (99-107); CREATININE 4.84 MG/DL (0.60-1.10); GLUCOSE 96 MG/DL (70-104); MAGNESIUM 1.6 MG/DL (1.5-2.4); POTASSIUM 4.1 MMOL/L (3.5-5.1); SODIUM 137 MMOL/L (135-145); TOTAL PROTEIN 5.5 G/DL (6.4-8.2); eGFR 12 ML/MIN
[2020-11-25] MEDS ORDERED: DOXYCYCLINE 100MG CAPSULE PO STA (08:35)
[2020-11-25] MEDS ORDERED: CefTRIAXone 2gm/D5W 50ml BAG 50 ML IV ONE (08:35)
[2020-11-25 08:37] LABS: ANISOCYTOSIS 1+; PLATELET ESTIMATE DECREASED; TOTAL CELLS COUNTED 100
[2020-11-25 08:38] LABS: POIKILOCYTOSIS 1+
[2020-11-25] MEDS ORDERED: normal saline 1000ML IV soln IV ONE (08:40)
[2020-11-25] MEDS ORDERED: magnesium Cl slow-release 64mg tablet PO PRN (10:40)
[2020-11-25] MEDS ORDERED: magnesium 2GM in 50ml NS 50 ML IV PRN (10:40)
[2020-11-25] MEDS ORDERED: ondansetron/PF 4mg/2ml inj IV PRN (10:40)
[2020-11-25] MEDS ORDERED: morphine 2 MG/ML inj. syringe IV PRN ×2 (10:40)
[2020-11-25] MEDS ORDERED: magnesium 4gm in 100ml NS 100 ML IV PRN (10:40)
[2020-11-25] MEDS ORDERED: potassium Cl 20 mEq SR tablet PO PRN ×2 (10:40)
[2020-11-25] MEDS ORDERED: diphenhydrAMINE 25mg capsule PO PRN (10:40)
[2020-11-25] MEDS ORDERED: ipratropium/albuterol 3ml nebule NEB PRN (10:40)
[2020-11-25] MEDS ORDERED: potassium Cl 40MEQ/1/2NS 520ml 520 ML IV PRN ×2 (10:40)
[2020-11-25] MEDS ORDERED: bisacodyl 10mg suppository rectal RC PRN (10:40)
[2020-11-25] MEDS ORDERED: magnesium hydroxide 30ml (MOM) UD suspension PO PRN (10:40)
[2020-11-25] MEDS ORDERED: acetaminophen 325mg tablet PO PRN ×2 (10:40)
[2020-11-25] MEDS ORDERED: acetaminophen 650mg rectal suppository RC PRN (10:40)
[2020-11-25] MEDS ORDERED: HYDROcodone/acetaminophen 5mg/325mg tablet PO PRN (10:40)
[2020-11-25] MEDS ORDERED: mag hydrox/Alum hydrox/simeth 30ml oral suspension PO PRN (10:40)
[2020-11-25 11:36] LABS: HEMOGLOBIN A1C 4.2 % (4.5-6.2)
[2020-11-25] MEDS ORDERED: FERR324T PO (11:52)
--- NOTE | 2020-11-25 15:56 | NUR ---
SOHAN () [phone] OR [phone] (HOME) PLEASE CALL WITH UPDATE WHEN POSSIBLE
[2020-11-25 18:27] LABS: UA COLLECTION TYPE VOIDED
[2020-11-25 18:28] LABS: CLARITY,URINE SLIGHTLY CLOUDY (Clear); COLOR,URINE YELLOW (Yellow); GLUCOSE, URINE NEGATIVE (Neg); KETONES,URINE NEGATIVE (Neg); LEUKOCYTE ESTERASE ,URINE NEGATIVE (Neg); NITRITES, URINE NEGATIVE (Neg); OCCULT BLOOD,URINE TRACE-LYSED (Neg); PROTEIN,URINE 30 mg/dl (Neg); UROBILINOGEN,URINE 0.2 E.U/dL (0.2-1.0)
[2020-11-25 18:33] LABS: COARSE GRANULAR CAST 0-3 /LPF (NEGATIVE); HYALINE CASTS 0-3 /LPF (NEGATIVE); MUCUS STRANDS FEW /LPF (Neg); SQUAMOUS EPITHELIAL CELL,UR FEW /LPF (FEW)
[2020-11-25 18:35] LABS: BACTERIA,URINE NONE SEEN /HPF (Neg); RBC,URINE 0-2 /HPF (0-2); WBC,URINE 0-4 /HPF (0-4)
--- NOTE | 2020-11-25 19:05 | NUR ---
report given to Tonya XIONG in PACU.
[2020-11-25 20:00] VITALS: BP 127/72
[2020-11-25] MEDS ORDERED: heparin, porcine 5000 units/ml vial SQ SCH (20:00)
[2020-11-25] MEDS: docusate sod 100mg capsule PO SCH (20:00)
[2020-11-25] MEDS: ferrous gluconate 324mg tablet PO SCH (20:00)
[2020-11-25] MEDS: furosemide 40mg tablet PO SCH (20:00)
[2020-11-25] MEDS: K and/or MAG REPLACEMENT MC SCH (20:00)
[2020-11-25] MEDS: ipratropium/albuterol 3ml nebule NEB SCH (20:13)
[2020-11-25] MEDS: ROSUVASTATIN CALCIUM 10 MG PO SCH (21:00)
[2020-11-25 22:00] VITALS: BP 108/53
[2020-11-25] MEDS: sodium bicarbonate 650mg tablet PO SCH (22:03)
[2020-11-25] MEDS: carVEDilol 3.125mg tablet PO SCH (22:04)
[2020-11-25] MEDS: HYDROcodone/acetaminophen 10/325mg tab PO PRN (22:05)
--- NOTE | 2020-11-25 22:24 | NUR ---
PAGER ID: [phone] MESSAGE: Krish Carolyne 3018A -- 79M dx Sepsis/Pnu Platelet=67-OK to hold SQ Heparin? Thank you Tonya Brand Per Dr Lloyd-CJ Heparin SQ
[2020-11-26] MEDS: normal saline 1000ml 1,000 ML IV SCH ×4 (00:14→20:02)
[2020-11-26 02:00] VITALS: BP 100/50
[2020-11-26] MEDS: ipratropium/albuterol 3ml nebule NEB SCH ×4 (02:00→20:44)
--- NOTE | 2020-11-26 05:06 | NUR ---
PAGER ID: [phone] MESSAGE: Carolyne Rutherford 79M 3017B Critical Lab: Positive blood cultures, aerobic bottle, R arm, drawn 11/25 @0745 (19.25 hrs)-gram positive cocci in clusters. Dr Lloyd ordered Vancomycin and a urine sample.
[2020-11-26] MEDS ORDERED: vancomycin/NS 1 GM ADD-VANTAGE 250 ML IV PRN (05:40)
[2020-11-26] MEDS ORDERED: vancomycin/NS 1 GM ADD-VANTAGE 250 ML IV ONE (05:40)
[2020-11-26 06:00] VITALS: BP 106/56
--- NOTE | 2020-11-26 06:53 | NUR ---
Problems reprioritized. Patient report given, questions answered & plan of care reviewed with INGA Villasenor.
[2020-11-26 07:05] LABS: BASOPHILS % (AUTO) 0.1 % (0-1); EOSINOPHILS % (AUTO) 0 % (0-6); HEMATOCRIT 34.6 % (42.0-52.0); HEMOGLOBIN 10.8 g/dl (14.0-17.9); LYMPHOCYTES # (AUTO) 0.3 X10'3 (1.1-4.8); LYMPHOCYTES % (AUTO) 1.2 % (21-51); MEAN CORPUSCULAR HEMOGLOBIN 31.1 PG (27.0-31.0); MEAN CORPUSCULAR HGB CONC 31.2 g/dL (33.0-36.5); MEAN CORPUSCULAR VOLUME 99.7 FL (78-98); MEAN PLATELET VOLUME 8.7 FL (7.4-10.4); MONOCYTES % (AUTO) 4.1 % (2-12); NEUTROPHILS # (AUTO) 21.9 X10'3 (1.8-7.7); NEUTROPHILS % (AUTO) 94.6 % (42-75); PLATELET COUNT 57 X10'3 (140-440); RED BLOOD COUNT 3.47 X10'6 (4.70-6.10); RED CELL DISTRIBUTION WIDTH 18.5 % (11.5-14.5); WHITE BLOOD COUNT 23.2 X10'3 (4.5-11.0)
[2020-11-26 07:27] LABS: ALANINE AMINOTRANSFERASE 14 U/L (12-78); ALBUMIN/GLOBULIN RATIO 0.6 (1.1-1.5); ALKALINE PHOSPHATASE 95 IU/L (46-116); ANION GAP 9 (8-16); ASPARTATE AMINO TRANSFERASE 21 U/L (10-37); BILIRUBIN,TOTAL 0.6 MG/DL (0.1-1.0); BLOOD UREA NITROGEN 44 MG/DL (7-18); BUN/CREATININE RATIO 8.1 (5.4-32.0); CALCIUM 7.8 MG/DL (8.5-10.1); CHLORIDE 104 MMOL/L (99-107); CHOL/HDL RATIO 2.8 (0.00-4.99); CHOLESTEROL 64 MG/DL (0-200); CREATININE 5.46 MG/DL (0.60-1.10); GLUCOSE 92 MG/DL (70-104); HDL CHOLESTEROL 23 MG/DL (35-60); LDL CHOLESTEROL 30 MG/DL (50-100); MAGNESIUM 1.6 MG/DL (1.5-2.4); PHOSPHORUS 4.6 MG/DL (2.3-4.5); POTASSIUM 4.3 MMOL/L (3.5-5.1); SODIUM 133 MMOL/L (135-145); TOTAL CARBON DIOXIDE 19.8 MMOL/L (24-32); TOTAL PROTEIN 5.1 G/DL (6.4-8.2); TRIGLYCERIDES 66 MG/DL (20-135); eGFR 10 ML/MIN
[2020-11-26] MEDS: K and/or MAG REPLACEMENT MC SCH ×2 (07:50→20:00)
[2020-11-26] MEDS: docusate sod 100mg capsule PO SCH ×2 (08:00→20:00)
[2020-11-26] MEDS: VILANTER IH SCH (08:00)
[2020-11-26] MEDS: UMECLIDIN IH SCH (08:00)
[2020-11-26] MEDS: FLUTICASONE IH SCH (08:00)
[2020-11-26] MEDS: furosemide 40mg tablet PO SCH ×2 (08:06→20:02)
[2020-11-26] MEDS: clopidogrel 75mg tablet PO SCH (08:07)
[2020-11-26] MEDS: lactobacillus rhamnosus 10,000 MMU CELLS/CAPSULE PO SCH (08:07)
[2020-11-26] MEDS: ferrous gluconate 324mg tablet PO SCH ×2 (08:07→20:02)
[2020-11-26] MEDS: multivitamins, therapeutics tablet PO SCH (08:07)
[2020-11-26] MEDS: vitamin B comp w/Vit. C tab 1 TAB TABLET PO SCH (08:08)
[2020-11-26] MEDS: azithromycin 250mg tablet PO SCH (08:08)
[2020-11-26] MEDS: pantoprazole 40mg Tablet.DR PO SCH (08:08)
[2020-11-26] MEDS: carVEDilol 3.125mg tablet PO SCH ×3 (08:09→20:02)
[2020-11-26] MEDS: sodium bicarbonate 650mg tablet PO SCH ×3 (08:09→20:02)
[2020-11-26] MEDS: CefTRIAXone/D5W-Rocephin 1gm 50 ML IV SCH (08:15)
[2020-11-26 11:00] VITALS: BP 110/57
[2020-11-26] MEDS: HYDROcodone/acetaminophen 10/325mg tab PO PRN (13:53)
[2020-11-26 15:00] VITALS: BP 99/55
[2020-11-26 18:00] VITALS: BP 101/51
--- NOTE | 2020-11-26 18:30 | NUR ---
Report given to Tonya XIONG. All questions answered.
[2020-11-26] MEDS: ROSUVASTATIN CALCIUM 10 MG PO SCH (21:00)
[2020-11-26 22:00] VITALS: BP 123/64
[2020-11-27 02:00] VITALS: BP 105/53
[2020-11-27] MEDS: ipratropium/albuterol 3ml nebule NEB SCH ×4 (02:00→14:00)
[2020-11-27] MEDS: HYDROcodone/acetaminophen 10/325mg tab PO PRN ×3 (02:11→13:17)
[2020-11-27] MEDS: VANCOMYCIN LEVEL IV SCH (03:00)
[2020-11-27 06:00] VITALS: BP 100/57
--- NOTE | 2020-11-27 06:50 | NUR ---
Patient in room PCU 3018. I have received report from Tonya XIONG and had the opportunity to ask questions and assume patient care.
--- NOTE | 2020-11-27 06:51 | NUR ---
Problems reprioritized. Patient report given, questions answered & plan of care reviewed with INGA Ly.
[2020-11-27 06:57] LABS: BASOPHILS % (AUTO) 0.2 % (0-1); EOSINOPHILS % (AUTO) 0.2 % (0-6); HEMATOCRIT 32.2 % (42.0-52.0); HEMOGLOBIN 10.1 g/dl (14.0-17.9); LYMPHOCYTES # (AUTO) 0.4 X10'3 (1.1-4.8); LYMPHOCYTES % (AUTO) 2.1 % (21-51); MEAN CORPUSCULAR HEMOGLOBIN 30.6 PG (27.0-31.0); MEAN CORPUSCULAR HGB CONC 31.5 g/dL (33.0-36.5); MEAN CORPUSCULAR VOLUME 97.2 FL (78-98); MEAN PLATELET VOLUME 8.9 FL (7.4-10.4); MONOCYTES % (AUTO) 5.8 % (2-12); NEUTROPHILS # (AUTO) 15.7 X10'3 (1.8-7.7); NEUTROPHILS % (AUTO) 91.7 % (42-75); PLATELET COUNT 52 X10'3 (140-440); RED BLOOD COUNT 3.31 X10'6 (4.70-6.10); RED CELL DISTRIBUTION WIDTH 18.6 % (11.5-14.5); WHITE BLOOD COUNT 17.1 X10'3 (4.5-11.0)
[2020-11-27 07:18] LABS: ALANINE AMINOTRANSFERASE 14 U/L (12-78); ALBUMIN 1.8 G/DL (3.4-5.0); ALBUMIN/GLOBULIN RATIO 0.6 (1.1-1.5); ALKALINE PHOSPHATASE 110 IU/L (46-116); ANION GAP 11 (8-16); ASPARTATE AMINO TRANSFERASE 19 U/L (10-37); BILIRUBIN,TOTAL 0.5 MG/DL (0.1-1.0); BLOOD UREA NITROGEN 52 MG/DL (7-18); BUN/CREATININE RATIO 8.5 (5.4-32.0); CALCIUM 7.6 MG/DL (8.5-10.1); CHLORIDE 106 MMOL/L (99-107); CREATININE 6.09 MG/DL (0.60-1.10); GLUCOSE 123 MG/DL (70-104); LACTATE DEHYDROGENASE 296 U/L (85-227); MAGNESIUM 1.7 MG/DL (1.5-2.4); PHOSPHORUS 4.6 MG/DL (2.3-4.5); POTASSIUM 3.9 MMOL/L (3.5-5.1); SODIUM 135 MMOL/L (135-145); TOTAL CARBON DIOXIDE 17.8 MMOL/L (24-32); TOTAL PROTEIN 4.9 G/DL (6.4-8.2); VANCOMYCIN,RANDOM 11.1 UG/ML; eGFR 9 ML/MIN
[2020-11-27] MEDS: UMECLIDIN IH SCH ×2 (08:00→19:13)
[2020-11-27] MEDS: VILANTER IH SCH ×2 (08:00→19:13)
[2020-11-27] MEDS: K and/or MAG REPLACEMENT MC SCH ×2 (08:00→20:00)
[2020-11-27] MEDS: FLUTICASONE IH SCH ×2 (08:00→19:13)
[2020-11-27] MEDS: CefTRIAXone/D5W-Rocephin 1gm 50 ML IV SCH (08:14)
[2020-11-27] MEDS: sodium bicarbonate 650mg tablet PO SCH ×2 (08:19→13:12)
[2020-11-27] MEDS: pantoprazole 40mg Tablet.DR PO SCH (08:19)
[2020-11-27] MEDS: lactobacillus rhamnosus 10,000 MMU CELLS/CAPSULE PO SCH (08:20)
[2020-11-27] MEDS: ferrous gluconate 324mg tablet PO SCH (08:20)
[2020-11-27] MEDS: clopidogrel 75mg tablet PO SCH (08:20)
[2020-11-27] MEDS: vitamin B comp w/Vit. C tab 1 TAB TABLET PO SCH (08:20)
[2020-11-27] MEDS: azithromycin 250mg tablet PO SCH (08:20)
[2020-11-27] MEDS: docusate sod 100mg capsule PO SCH ×2 (08:21→20:00)
[2020-11-27] MEDS: multivitamins, therapeutics tablet PO SCH (08:21)
[2020-11-27] MEDS: furosemide 40mg tablet PO SCH ×2 (08:21→20:00)
[2020-11-27] MEDS ORDERED: vancomycin/NS 1 GM ADD-VANTAGE 250 ML IV ONE ×2 (08:25→09:20)
[2020-11-27] MEDS ORDERED: heparin 1,000unit/ml 10ml vial 10 ML IV ONE (09:25)
[2020-11-27] MEDS ORDERED: normal saline 1000ml 250 ML IV PRN (09:25)
[2020-11-27] MEDS ORDERED: heparin 1,000 units/ml 10ml inj HE ONE ×2 (09:25)
[2020-11-27] MEDS ORDERED: EPOETIN ALFA-EPBX 20,000 UNIT/ML 1 ML MDV IV ONE (09:25)
[2020-11-27 11:00] VITALS: BP 106/57
--- NOTE | 2020-11-27 14:00 | NUR ---
Patient in room PCU 3018. I have received report from INGA Ly and had the opportunity to ask questions and assume patient care. Patient awake in bed. Patient did not have any oxygen on and saturations were down in the 60's. Patient's saturations went back up when hooked back up to oxygen. In no acute distress.
[2020-11-27 15:00] VITALS: BP 129/57
[2020-11-27] MEDS: normal saline 1000ml 1,000 ML IV SCH (16:14)
[2020-11-27 18:00] VITALS: BP 93/47
--- NOTE | 2020-11-27 18:38 | NUR ---
Problems reprioritized. Patient report given, questions answered & plan of care reviewed with INGA Dinh. Patient stable at transfer of care.
--- NOTE | 2020-11-27 18:39 | NUR ---
Patient in room PCU 3018. I have received report from INGA Sharma and had the opportunity to ask questions and assume patient care.
--- NOTE | 2020-11-27 19:09 | NUR ---
Pt spouse wanted him to take his Trelegy inhaler now @1910 because he did not have access to it earlier. Spoke with Arnie Padilla while on floor and he stated that it would be fine to give now and keep the scheduled dose at 0800 tomorrow.
[2020-11-27] MEDS: carVEDilol 3.125mg tablet PO SCH (20:00)
[2020-11-28] VITALS (10 sets, daily range): BP systolic 84–127; BP diastolic 42–69
--- NOTE | 2020-11-28 01:48 | NUR ---
Pt dialysis is finished and was advised by Charge, Jacklyn to pass scheduled 2000 and 2100 meds now @ 3590.
[2020-11-28] MEDS: ROSUVASTATIN CALCIUM 10 MG PO SCH ×2 (01:54→20:53)
[2020-11-28] MEDS: sodium bicarbonate 650mg tablet PO SCH ×4 (01:54→20:53)
[2020-11-28] MEDS: ferrous gluconate 324mg tablet PO SCH ×3 (01:54→20:53)
[2020-11-28] MEDS: VANCOMYCIN LEVEL IV SCH (03:00)
[2020-11-28 07:04] LABS: BASOPHILS % (AUTO) 0.2 % (0-1); EOSINOPHILS % (AUTO) 0.3 % (0-6); HEMATOCRIT 35.9 % (42.0-52.0); HEMOGLOBIN 11.1 g/dl (14.0-17.9); LYMPHOCYTES # (AUTO) 0.4 X10'3 (1.1-4.8); LYMPHOCYTES % (AUTO) 2.5 % (21-51); MEAN CORPUSCULAR HEMOGLOBIN 30.4 PG (27.0-31.0); MEAN CORPUSCULAR HGB CONC 30.8 g/dL (33.0-36.5); MEAN CORPUSCULAR VOLUME 98.7 FL (78-98); MEAN PLATELET VOLUME 9.9 FL (7.4-10.4); MONOCYTES # (AUTO) 0.9 X10'3 (0-0.9); MONOCYTES % (AUTO) 5.7 % (2-12); NEUTROPHILS # (AUTO) 13.9 X10'3 (1.8-7.7); NEUTROPHILS % (AUTO) 91.3 % (42-75); PLATELET COUNT 58 X10'3 (140-440); RED BLOOD COUNT 3.64 X10'6 (4.70-6.10); RED CELL DISTRIBUTION WIDTH 18.4 % (11.5-14.5); WHITE BLOOD COUNT 15.3 X10'3 (4.5-11.0)
--- NOTE | 2020-11-28 07:10 | NUR ---
Problems reprioritized. Patient report given, questions answered & plan of care reviewed with INGA Negron.
--- NOTE | 2020-11-28 07:13 | NUR ---
Patient in room PCU 3018. I have received report from INGA NORMAN, and had the opportunity to ask questions and assume patient care.
[2020-11-28 07:25] LABS: ALANINE AMINOTRANSFERASE 14 U/L (12-78); ALBUMIN/GLOBULIN RATIO 0.6 (1.1-1.5); ALKALINE PHOSPHATASE 116 IU/L (46-116); ANION GAP 11 (8-16); ASPARTATE AMINO TRANSFERASE 19 U/L (10-37); BILIRUBIN,TOTAL 0.6 MG/DL (0.1-1.0); BLOOD UREA NITROGEN 28 MG/DL (7-18); BUN/CREATININE RATIO 6.9 (5.4-32.0); CALCIUM 8.1 MG/DL (8.5-10.1); CHLORIDE 103 MMOL/L (99-107); CREATININE 4.05 MG/DL (0.60-1.10); GLUCOSE 101 MG/DL (70-104); MAGNESIUM 1.7 MG/DL (1.5-2.4); PHOSPHORUS 3.1 MG/DL (2.3-4.5); POTASSIUM 3.6 MMOL/L (3.5-5.1); SODIUM 139 MMOL/L (135-145); TOTAL CARBON DIOXIDE 25.4 MMOL/L (24-32); TOTAL PROTEIN 5.4 G/DL (6.4-8.2); eGFR 14 ML/MIN
[2020-11-28] MEDS: ipratropium/albuterol 3ml nebule NEB SCH ×3 (08:00→20:00)
[2020-11-28] MEDS: K and/or MAG REPLACEMENT MC SCH ×2 (08:00→20:59)
[2020-11-28] MEDS: docusate sod 100mg capsule PO SCH ×2 (08:08→20:53)
[2020-11-28] MEDS: clopidogrel 75mg tablet PO SCH (08:08)
[2020-11-28] MEDS: carVEDilol 3.125mg tablet PO SCH ×2 (08:19→20:53)
[2020-11-28] MEDS: furosemide 40mg tablet PO SCH ×2 (08:19→20:53)
[2020-11-28 09:00] LABS: HBSAG SCREEN Negative (Negative)
[2020-11-28] MEDS: CefTRIAXone 2gm/D5W 50ml BAG 50 ML IV SCH (09:02)
[2020-11-28] MEDS: vitamin B comp w/Vit. C tab 1 TAB TABLET PO SCH (09:03)
[2020-11-28] MEDS: lactobacillus rhamnosus 10,000 MMU CELLS/CAPSULE PO SCH (09:03)
[2020-11-28] MEDS: multivitamins, therapeutics tablet PO SCH (09:03)
[2020-11-28] MEDS: HYDROcodone/acetaminophen 10/325mg tab PO PRN ×2 (09:03→13:36)
[2020-11-28] MEDS: pantoprazole 40mg Tablet.DR PO SCH (09:04)
--- NOTE | 2020-11-28 14:24 | NUR ---
PAGE SENT PAGER ID: [phone] MESSAGE: [id number], KENZIE YU, CULTURE LAB RESULTS DRAW 11/27/20: RIGHT ARM - AEROBIC, 26 HOURS, GRAM + COCCI IN CLUSTERS LEFT ARM - AEROBIC, 26 HOURS, GRAM + COCCI IN CLUSTERS THANK YOU, RADHA [phone]
--- NOTE | 2020-11-28 14:25 | NUR ---
RESULTS FROM EMILIE DUEÑAS, CULTURE LAB RESULTS DRAW 11/27/20: RIGHT ARM - AEROBIC, 26 HOURS, GRAM + COCCI IN CLUSTERS LEFT ARM - AEROBIC, 26 HOURS, GRAM + COCCI IN CLUSTERS V - [phone] Addendum: 11/28/20 at 1426 by Migdalia Salgado RN PRPLENDER NOTIFIED.
--- NOTE | 2020-11-28 15:22 | NUR ---
PAGE SENT 0691R, KENZIE YU PT HAS ORDERS TO HAVE HIS TDC REMOVED AND TO CULTURE TIP. THANK YOU, RADHA [phone]
[2020-11-28] MEDS: normal saline 1000ml 1,000 ML IV SCH ×2 (15:38→18:54)
[2020-11-28] MEDS ORDERED: vancomycin/NS 1 GM ADD-VANTAGE 250 ML IV PRN (15:40)
[2020-11-28] MEDS ORDERED: LIDOcaine 1%/PF 5ML 10 MG/ML VIAL ONE (16:26)
--- NOTE | 2020-11-28 18:23 | NUR ---
Problems reprioritized. Patient report given, questions answered & plan of care reviewed with INGA MENESES.
[2020-11-29] VITALS (7 sets, daily range): BP systolic 90–99; BP diastolic 44–52
[2020-11-29] MEDS: ipratropium/albuterol 3ml nebule NEB SCH ×4 (02:00→20:00)
[2020-11-29] MEDS: VANCOMYCIN LEVEL IV SCH (03:00)
[2020-11-29] MEDS: normal saline 1000ml 1,000 ML IV SCH (05:30)
[2020-11-29 07:05] LABS: ALANINE AMINOTRANSFERASE 13 U/L (12-78); ALBUMIN 1.8 G/DL (3.4-5.0); ALBUMIN/GLOBULIN RATIO 0.5 (1.1-1.5); ALKALINE PHOSPHATASE 112 IU/L (46-116); ANION GAP 13 (8-16); ASPARTATE AMINO TRANSFERASE 20 U/L (10-37); BILIRUBIN,TOTAL 0.5 MG/DL (0.1-1.0); BLOOD UREA NITROGEN 40 MG/DL (7-18); BUN/CREATININE RATIO 7.4 (5.4-32.0); CALCIUM 7.8 MG/DL (8.5-10.1); CHLORIDE 102 MMOL/L (99-107); CREATININE 5.42 MG/DL (0.60-1.10); GLUCOSE 96 MG/DL (70-104); MAGNESIUM 1.6 MG/DL (1.5-2.4); PHOSPHORUS 4.4 MG/DL (2.3-4.5); POTASSIUM 3.6 MMOL/L (3.5-5.1); SODIUM 139 MMOL/L (135-145); TOTAL CARBON DIOXIDE 23.9 MMOL/L (24-32); TOTAL PROTEIN 5.1 G/DL (6.4-8.2); VANCOMYCIN,RANDOM 14.7 UG/ML; eGFR 10 ML/MIN
[2020-11-29 07:06] LABS: BASOPHILS # (AUTO) 0.1 X10'3 (0-0.2); BASOPHILS % (AUTO) 0.4 % (0-1); EOSINOPHILS % (AUTO) 0.2 % (0-6); HEMATOCRIT 33.5 % (42.0-52.0); HEMOGLOBIN 10.3 g/dl (14.0-17.9); LYMPHOCYTES # (AUTO) 0.3 X10'3 (1.1-4.8); MEAN CORPUSCULAR HEMOGLOBIN 30.2 PG (27.0-31.0); MEAN CORPUSCULAR HGB CONC 30.7 g/dL (33.0-36.5); MEAN CORPUSCULAR VOLUME 98.5 FL (78-98); MEAN PLATELET VOLUME 9.2 FL (7.4-10.4); MONOCYTES # (AUTO) 0.5 X10'3 (0-0.9); MONOCYTES % (AUTO) 3.3 % (2-12); NEUTROPHILS # (AUTO) 14.9 X10'3 (1.8-7.7); NEUTROPHILS % (AUTO) 94.1 % (42-75); RED BLOOD COUNT 3.41 X10'6 (4.70-6.10); RED CELL DISTRIBUTION WIDTH 18.5 % (11.5-14.5)
[2020-11-29 07:17] LABS: PLATELET COUNT 50 X10'3 (140-440)
[2020-11-29 07:20] LABS: WHITE BLOOD COUNT 15.8 X10'3 (4.5-11.0)
[2020-11-29] MEDS: CefTRIAXone 2gm/D5W 50ml BAG 50 ML IV SCH (07:58)
[2020-11-29] MEDS ORDERED: sodium bicarbonate (8.4%) 1 mEq/ml syringe ONE (08:00)
[2020-11-29] MEDS ORDERED: calcium chloride 100 MG/1 ML inj IV ONE (08:00)
[2020-11-29] MEDS ORDERED: sod chloride 0.9% 10ml flush syringe IV ONE (08:00)
[2020-11-29] MEDS: furosemide 40mg tablet PO SCH ×2 (08:00→20:42)
[2020-11-29] MEDS: clopidogrel 75mg tablet PO SCH (08:00)
[2020-11-29] MEDS ORDERED: epiNEPHrine 0.1mg/ml 10ml syringe ONE (08:00)
[2020-11-29] MEDS: multivitamins, therapeutics tablet PO SCH (08:00)
[2020-11-29] MEDS: carVEDilol 3.125mg tablet PO SCH ×2 (08:00→20:42)
[2020-11-29] MEDS ORDERED: amiodarone 50MG/ML inj IV ONE (08:00)
[2020-11-29] MEDS: lactobacillus rhamnosus 10,000 MMU CELLS/CAPSULE PO SCH (08:00)
[2020-11-29] MEDS: K and/or MAG REPLACEMENT MC SCH ×2 (08:00→20:44)
[2020-11-29] MEDS: pantoprazole 40mg Tablet.DR PO SCH (08:00)
[2020-11-29] MEDS ORDERED: LIDOcaine 2% (20 mg/ml) 5ml cardiac syringe ONE (08:00)
[2020-11-29] MEDS: docusate sod 100mg capsule PO SCH ×2 (08:00→20:00)
[2020-11-29] MEDS: ferrous gluconate 324mg tablet PO SCH ×2 (08:01→20:42)
[2020-11-29] MEDS: vitamin B comp w/Vit. C tab 1 TAB TABLET PO SCH (08:01)
[2020-11-29] MEDS: sodium bicarbonate 650mg tablet PO SCH ×3 (08:02→20:42)
[2020-11-29] MEDS: UMECLIDIN IH SCH (08:46)
[2020-11-29] MEDS: FLUTICASONE IH SCH (08:46)
[2020-11-29] MEDS: VILANTER IH SCH (08:46)
[2020-11-29 09:10] LABS: PLATELET ESTIMATE DECREASED
[2020-11-29 09:11] LABS: ANISOCYTOSIS 2+; BURR CELLS FEW; MICROCYTOSIS FEW
[2020-11-29 09:12] LABS: SCHISTOCYTES FEW
--- NOTE | 2020-11-29 09:13 | NUR ---
PAGE SENT PAGER ID: [phone] MESSAGE: 2025f KENZIE GIGI, MORNING CAREDILOL 3.125, LASIX 40, HELD DUE TO LOW BP - /40. THANK YOU, RADHA [phone]
[2020-11-29] MEDS: HYDROcodone/acetaminophen 10/325mg tab PO PRN ×2 (09:21→17:45)
[2020-11-29] MEDS ORDERED: vancomycin/NS 1 GM ADD-VANTAGE 250 ML IV ONE (14:15)
--- NOTE | 2020-11-29 14:20 | NUR ---
Initial: Pt admit for PNA with sepsis. Pt with ESRD on HD, currently on a renal diet with slightly fluctuating PO intake averaging 67% PO intake since admit not fully meeting estimated nutrient needs. Recommend Ensure High Protein TID to assist with meeting estimated nutrient needs. ONS to be sent pending physician approval in EMR. LBM 11/28, receiving routine bowel care. Will continue to follow and monitor need for further nutrition intervention. Recommendations: 1) Continue renal diet 2) Vanilla Ensure High Protein TID, pending physician approval in EMR 3) Monitor need for Phos binder, currently WNL 4) Routine bowel care 5) Scaled weights with dialysis Addendum: 11/29/20 at [address] Amended: Links added.
[2020-11-29] MEDS ORDERED: lactose-reduced food (Ensure High Protein) 237ml bottle PO SCH (18:00)
--- NOTE | 2020-11-29 18:38 | NUR ---
Problems reprioritized. Patient report given, questions answered & plan of care reviewed with INGA MENESES.
--- NOTE | 2020-11-29 18:45 | NUR ---
Patient in room PCU 3018. I have received report from Migdalia XIONG and had the opportunity to ask questions and assume patient care.
[2020-11-29] MEDS: ROSUVASTATIN CALCIUM 10 MG PO SCH (20:42)
[2020-11-30 02:00] VITALS: BP 92/54
[2020-11-30] MEDS: ipratropium/albuterol 3ml nebule NEB SCH (02:00)
[2020-11-30] MEDS: VANCOMYCIN LEVEL IV SCH (03:00)
[2020-11-30 03:15] VITALS: BP 96/66
--- NOTE | 2020-11-30 03:17 | NUR ---
pt complaining of chest pain. Dr. ash notified. order for 12 lead EKG. will follow up with results
[2020-11-30] MEDS ORDERED: nitroGLYCERIN 1gm ointment UD TP ONE (03:30)
[2020-11-30 03:41] VITALS: BP 103/63
--- NOTE | 2020-11-30 03:42 | NUR ---
0.5 inch nitro paste ordered. MD intructed to watch for drop is SBP below 85 then wipe off ointment. vitals remain stable and pt request to be put on his home CPAP despite O2 sats >95%.
[2020-11-30 03:55] VITALS: BP 96/60
--- NOTE | 2020-11-30 03:55 | NUR ---
BP stable at 96/60 (73), HR is 84. pt is resting more comfortably and says chest pain has lessened
--- NOTE | 2020-11-30 05:43 | NUR ---
Carolyne went into cardiac arrest. He was a Full Code. A resuscitation attempt was made using ACLS but he ultimately after efforts were deemed futile. Time of was called at 0450. His Carina was notified by Dr. Burgos and Cristel XIONG called donor network and arranged pepper picker with the the mortuary.
[2020-11-30] MEDS ORDERED: heparin 1,000 units/ml 10ml inj HE ONE ×2 (08:00)
[2020-11-30] MEDS ORDERED: normal saline 1000ml 250 ML IV PRN (08:00)
[2020-11-30] MEDS ORDERED: heparin 1,000unit/ml 10ml vial 10 ML IV ONE (08:00)
[2020-11-30] MEDS ORDERED: EPOETIN ALFA-EPBX 20,000 UNIT/ML 1 ML MDV IV ONE (08:00)
== END 2020-11-30 06:10 | DRG 871 ==
LOC: ER 06:41 → ED HOLD 10:45 → EDBEDREQ 18:12 → PCU 3S 19:10
PROVIDERS: ADMIT Family Medicine; ATTEND Family Medicine
PROC: 5A09357 Assistance with Respiratory Ventilation, Less than 24 Consecutive Hours, Continuous Positive Airway Pressure (ICD-10-PCS; principal; 2020-11-27)
PROC: 5A1D70Z Performance of Urinary Filtration, Intermittent, Less than 6 Hours Per Day (ICD-10-PCS; 2020-11-27)
PROC: 5A09357 Assistance with Respiratory Ventilation, Less than 24 Consecutive Hours, Continuous Positive Airway Pressure (ICD-10-PCS; 2020-11-28)
PROC: 5A09357 Assistance with Respiratory Ventilation, Less than 24 Consecutive Hours, Continuous Positive Airway Pressure (ICD-10-PCS; 2020-11-29)
PROC: 5A09357 Assistance with Respiratory Ventilation, Less than 24 Consecutive Hours, Continuous Positive Airway Pressure (ICD-10-PCS; 2020-11-30)
PROC: 5A12012 Performance of Cardiac Output, Single, Manual (ICD-10-PCS; 2020-11-30)
DX: A41.51 Sepsis due to Escherichia coli [E. coli] (principal); J18.9 Pneumonia, unspecified organism; N18.6 End stage renal disease; J96.90 Respiratory failure, unspecified, unspecified whether with hypoxia or hypercapnia; I13.2 Hypertensive heart and chronic kidney disease with heart failure and with stage 5 chronic kidney disease, or end stage renal disease; I50.9 Heart failure, unspecified; I25.10 Atherosclerotic heart disease of native coronary artery without angina pectoris; E78.5 Hyperlipidemia, unspecified; I46.2 Cardiac arrest due to underlying cardiac condition; I48.91 Unspecified atrial fibrillation; I49.01 Ventricular fibrillation; M54.9 Dorsalgia, unspecified; J43.9 Emphysema, unspecified; K21.9 Gastro-esophageal reflux disease without esophagitis; N40.0 Benign prostatic hyperplasia without lower urinary tract symptoms; R65.20 Severe sepsis without septic shock; Z20.822 Contact with and (suspected) exposure to COVID-19; Z79.899 Other long term (current) drug therapy; I25.2 Old myocardial infarction; Z82.49 Family history of ischemic heart disease and other diseases of the circulatory system; Z87.891 Personal history of nicotine dependence; Z88.2 Allergy status to sulfonamides; Z95.1 Presence of aortocoronary bypass graft; Z95.2 Presence of prosthetic heart valve; Z99.2 Dependence on renal dialysis; Z88.8 Allergy status to other drugs, medicaments and biological substances; Z95.3 Presence of xenogenic heart valve
CPT/HCPCS: 36415; 36589; 71045; 71250; 72128; 72131; 80053; 80061; 80202; 81001; 82948; 83036; 83605; 83615; 83735; 84100; 84145; 85007; 85008; 85025; 87040; 87070; 87077; 87081; 87186; 87340; 87635; 92950; 93005; 93308; 94640; 94668; 94760; 97110; 97116; 97162; 97530; 97535; 99285; G0257; G0378; J0171; J0696; J1644; J3370; J7030; Q4081